=== PATIENT | male | born 1995 | race Caucasian/White ===

== ENCOUNTER 2021-10-09 17:40 | Emergency (ER) | payer MEDICAID ==
[~2021-10-09] VITALS: Ht 193 cm; Wt 73.0 kg
[2021-10-09] MEDS ORDERED: ACETAMINOPHEN 325MG TABLET PO ONE (18:45)
[2021-10-09] MEDS ORDERED: METOCLOPRAMIDE HCL 10MG TABLET PO ONE (18:45)
[2021-10-09] MEDS ORDERED: DIPHENHYDRAMINE 25MG CAPSULE PO ONE (18:45)
[2021-10-09 19:58] VITALS: BP 128/86
== END 2021-10-09 20:00 | disposition home or self-care (01) ==
LOC: ER 17:40
DX: R51.9 Headache, unspecified (principal); I49.9 Cardiac arrhythmia, unspecified
CPT/HCPCS: 71045; 93005; 99285; J8597; Q0163